=== PATIENT | female | born 1995 | race Caucasian/White ===

== ENCOUNTER 2017-08-27 13:45 | Outpatient (RCR) | payer OTHER, MEDICAID ==
[2017-02-22 06:09] VITALS: BMI 28.4
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
[~2017-08-27 13:45] MED LIST: ACET-1966 PO; AMOX-362 PO; ASPI-1471 PO; Acetamin/Butalbital/Caffeine PO; BUTA1CAP4 PO; CALC-488 PO; CALC-515 PO; CIPR-344 PO; CLIN300C99 PO; ESCI10TA8 PO; ESCI20TA38 PO; ESCI20TA8 PO; FAMO1TAB59 PO; FERR-53 PO; HYDR-389; HYDR-4309 PO; IBUP-56 PO; IBUP800T37 PO; Ibuprofen PO; LOR5/325 PO; LORA-809 PO; NICO-218 TD; NIF10 PO; NIFE10CA38 PO; NITR-105 PO; NORG1TAB97; NORG1TAB97 PO; OMEP40CA48 PO; ONDA4TAB PO; ONDA4TAB97 PO; OXYC-865 PO; PENI-24 PO; PER PO; PREN-123 PO; PREN-127 PO; PROM-110 PO; SUCR1TAB85 PO; SULF-198 PO; [UNRECOGNIZED DRUG - CODE] PO; [UNRECOGNIZED DRUG - OTHER]
== END 2017-08-27 18:00 | disposition home or self-care (01) ==
LOC: PT 13:45
PROVIDERS: ATTEND Orthopaedic Surgery
DX: Z47.89 Encounter for other orthopedic aftercare (principal); S82.871D Displaced pilon fracture of right tibia, subsequent encounter for closed fracture with routine healing; V89.2XXD Person injured in unspecified motor-vehicle accident, traffic, subsequent encounter
CPT/HCPCS: 97161

== ENCOUNTER 2017-10-24 13:00 | Outpatient (RCR) | payer OTHER, MEDICAID ==
[2017-02-22 06:09] VITALS: BMI 28.4
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
== END 2017-10-24 18:00 | disposition home or self-care (01) ==
LOC: PT 13:00
PROVIDERS: ATTEND Orthopaedic Surgery
DX: Z47.89 Encounter for other orthopedic aftercare (principal); S82.871D Displaced pilon fracture of right tibia, subsequent encounter for closed fracture with routine healing; M62.81 Muscle weakness (generalized); M25.571 Pain in right ankle and joints of right foot; V89.2XXD Person injured in unspecified motor-vehicle accident, traffic, subsequent encounter
CPT/HCPCS: 97161

== ENCOUNTER 2017-12-18 18:22 | Emergency (ER) | payer OTHER, MEDICAID ==
[2017-02-22 06:09] VITALS: Wt 77.1 kg
[2017-12-18] MEDS ORDERED: ONDANSETRON 4 MG/2 ML VIAL IVP ONE (18:45)
[2017-12-18] MEDS ORDERED: NS(*) 0.9% 1000 ML BAG 1,000 ML IV ONE (18:45)
--- NOTE | 2017-12-18 18:55 | ER Report ---
History and Physical Time Seen By MD: 18:35 Hx. of Stated Complaint: Pt has cough since this morning and vomiting. No fevers or diarrhea. New control pills 2 months ago. Allergies: Coded Allergies: terbutaline (Verified Adverse Reaction, Intermediate, severe tachacardia, 12/27/16) Home Meds Reported Medications Acetaminophen (TYLENOL) 325 Mg Tablet, 650 MG PO Q4-6H, TAB 05/23/17 Escitalopram Oxalate (LEXAPRO) 20 Mg Tablet, 10 MG PO QDAY, TAB 05/08/17 Discontinued Reported Medications Aspirin (ASPIR 81) 81 Mg Tablet.dr, 81 MG PO QDAY, TAB 05/08/17 Ferrous Sulfate (FERROUS SULFATE) 325 Mg Tablet, 325 MG PO QDAY 05/08/17 Discontinued Scripts Promethazine Hcl (PROMETHAZINE HCL) 25 Mg Tablet, 25 MG PO Q8H Y for NAUSEA/ VOMITING, #20 TAB 0 Refills Prov:SHABNAM LI MD 05/23/17 Hx Smoking: Yes Smoking Status: Former Smoker Exposure to Second Hand Smoke?: Yes Hx Substance Use Disorder: No Hx Alcohol Use: No Constitutional Vital Sign - Last 24 Hours 12/18/17 18:31 Temp 99.7 Pulse 97 Resp 16 B/P (MAP) 145/89 Pulse Ox 94 O2 Delivery Room Air Depart Departure Latest Vital Signs Vital Signs Date Time Temp Pulse Resp B/P (MAP) Pulse Ox O2 Delivery O2 Flow Rate FiO2 12/18/17 18:31 99.7 97 16 145/89 94 Room Air Referrals: ANNA RAO MD (PCP) GOPAL GONZALEZ MD Dec 18, 2017 18:55
[2017-12-18] MEDS ORDERED: IOPAMIDOL 76% 75 ML INFUS BTL 75 ML ONE (19:02)
--- NOTE | 2017-12-18 19:17 | EKG ---
FACILITY: [facility] [place] PATIENT NAME: VIJAY MICHAEL : [id number] MR: [id number] V: [id number] EXAM DATE: ORDERING PHYSICIAN: BLANCA MULLINS TECHNOLOGIST: MICHAELLE Test Reason : CP Blood Pressure : / mmHG Vent. Rate : 088 BPM Atrial Rate : 088 BPM P-R Int : 124 ms QRS Dur : 076 ms QT Int : 350 ms P-R-T Axes : 033 032 022 degrees QTc Int : 423 ms Normal sinus rhythm with sinus arrhythmia Normal ECG When compared with ECG of 08-MAY-2017 20:07, Vent. rate has increased BY 41 BPM Confirmed by DUNG BRASHER ([id number]) on 12/19/2017 11:16:39 AM Referred By: HARPREET Confirmed By:DUNG BRASHER
[2017-12-18 19:36] LABS: PLATELET COUNT, AUTOMATED 280 K/uL (150-450)
--- NOTE | 2017-12-18 19:43 | ER Report ---
History and Physical Time Seen By MD: 18:35 Hx. of Stated Complaint: Pt has cough since this morning and vomiting. No fevers or diarrhea. New control pills 2 months ago. HPI/ROS Chief Complaint: "Cough and Chest Pain" HPI: 22-year-old patient presents to the ED with sudden onset of cough, chest pain, shortness of breath, epigastric, right upper quadrant abdominal pain, nausea and vomiting. The patient states all the symptoms started about 2 hours ago. States, nothing preceded this and "everything came out of nowhere." Reports she now has a headache ever since she started to vomit. No treatments tried. ROS: Constitutional: reports chills and symptoms of fever HEENT: reports headache, denies changes in vision Respiratory: Reports shortness of breath, reports chest pain CV: Reports chest pain : denies changes in urination GI: reports left upper gastric pain, reports epigastric pain, denies constipation or diarrhea Allergies: Coded Allergies: terbutaline (Verified Adverse Reaction, Intermediate, severe tachacardia, 12/27/16) Home Meds Active Scripts Ondansetron (ZOFRAN ODT) 4 Mg Tab.rapdis, 4 MG PO Q6H Y for NAUSEA/VOMITING, # 20 TAB.JOCELINE Prov:BLANCA MULLINS 12/18/17 Reported Medications Acetaminophen (TYLENOL) 325 Mg Tablet, 650 MG PO Q4-6H, TAB 05/23/17 Escitalopram Oxalate (LEXAPRO) 20 Mg Tablet, 10 MG PO QDAY, TAB 05/08/17 Discontinued Reported Medications Aspirin (ASPIR 81) 81 Mg Tablet.dr, 81 MG PO QDAY, TAB 05/08/17 Ferrous Sulfate (FERROUS SULFATE) 325 Mg Tablet, 325 MG PO QDAY 05/08/17 Discontinued Scripts Promethazine Hcl (PROMETHAZINE HCL) 25 Mg Tablet, 25 MG PO Q8H Y for NAUSEA/ VOMITING, #20 TAB 0 Refills Prov:SHABNAM LI MD 05/23/17 Past Medical/Surgical History ankle fracture 1 year ago Reviewed Nurses Notes: Yes Hx Smoking: Yes Smoking Status: Former Smoker Exposure to Second Hand Smoke?: Yes Hx Substance Use Disorder: No Hx Alcohol Use: No Constitutional Vital Sign - Last 24 Hours 12/18/17 12/18/17 12/18/17 12/18/17 18:22 18:31 18:32 18:37 Temp 99.7 Pulse ??? 97 101 Resp 16 B/P (MAP) 145/89 145/89 (107) Pulse Ox 94 95 O2 Delivery Room Air 12/18/17 12/18/17 12/18/17 12/18/17 18:52 19:00 19:07 19:22 Pulse 86 ??? 88 B/P (MAP) 127/68 (87) Pulse Ox 94 94 12/18/17 12/18/17 12/18/17 12/18/17 19:30 19:37 19:52 20:00 Pulse 80 69 B/P (MAP) 118/85 (96) ???/??? (1665) Pulse Ox 93 94 12/18/17 12/18/17 12/18/17 12/18/17 20:07 20:12 20:27 20:30 Pulse ??? 64 67 B/P (MAP) 113/84 (94) Pulse Ox 96 96 12/18/17 12/18/17 12/18/17 20:42 20:57 21:12 Pulse 71 ? Pulse Ox 96 Physical Exam General: 22-year-old female ill appearing HEENT: normocephalic, atraumatic, TMs osiel briggs BL without effusion, no rhinorrhea, no erythema or exudate of the tonsils Respiratory: BL equal respiratory excursion, CTA BL CV: clear S1 S2, no murmurs GI: normoactive BS x 4, left upper gastric pain on palpation, currently vomiting Musculoskeletal: free, full ROM of all extremities, free, full ROM of the neck Differential diagnoses considered: [place], pneumonia, infection, and pancreatitis Medical Decision Making Data Points Result Diagram: 12/18/17191912/18/171919 Laboratory Hematology Test 12/18/17 19:12 12/18/17 19:20 Urine Color Straw Urine Clarity Clear Urine pH 6.0 pH (4.8-9.5) Urine Specific Hemphill 1.013 Urine Protein Negative mg/dL (NEGATIVE) Urine Glucose (UA) Negative mg/dL (NEGATIVE) Urine Ketones Negative mg/dL (NEGATIVE) Urine Blood Negative (NEGATIVE) Urine Nitrite Negative (NEGATIVE) Urine Bilirubin Negative (NEGATIVE) Urine Urobilinogen Negative mg/dL (0.2-1.9) Urine Leukocyte Esterase Negative (NEGATIVE) Urine RBC None /HPF (0-2/HPF) Urine WBC <1 /HPF (0-5/HPF) Urine Squamous Epithelial Cells Many /LPF (</=FEW) Urine Bacteria Negative /HPF (NONE-FEW) Urine Mucus None /HPF (NONE-FEW) Red Blood Count 4.98 M/uL (4.17-5.56) Mean Corpuscular Volume 86.4 fL (80.0-96.0) Mean Corpuscular Hemoglobin 30.4 pg (26.0-33.0) Mean Corpuscular Hemoglobin Concent 35.2 g/dL (32.0-36.0) Red Cell Distribution Width 12.6 % (11.5-14.5) Mean Platelet Volume 8.5 fL (7.2-11.1) Neutrophils (%) (Auto) 59.8 % (39.4-72.5) Lymphocytes (%) (Auto) 31.1 % (17.6-49.6) Monocytes (%) (Auto) 6.6 % (4.1-12.4) Eosinophils (%) (Auto) 1.0 % (0.4-6.7) Basophils (%) (Auto) 1.5 % (0.3-1.4) Nucleated RBC Relative Count (auto) 0.0 /100WBC Neutrophils # (Auto) 5.4 K/uL (2.0-7.4) Lymphocytes # (Auto) 2.8 K/uL (1.3-3.6) Monocytes # (Auto) 0.6 K/uL (0.3-1.0) Eosinophils # (Auto) 0.1 K/uL (0.0-0.5) Basophils # (Auto) 0.1 K/uL (0.0-0.1) Nucleated RBC Absolute Count (auto) 0.00 K/uL Sodium Level 139 mmol/L (137-145) Potassium Level 3.7 mmol/L (3.5-5.0) Chloride Level 101 mmol/L (98-107) Carbon Dioxide Level 24 mmol/L (22-31) Blood Urea Nitrogen 13 mg/dl (7-18) Creatinine 0.70 mg/dl (0.52-1.04) Glomerular Filtration Rate Calc > 60.0 Random Glucose 92 mg/dl (75-110) Calcium Level 9.9 mg/dl (8.4-10.2) Total Bilirubin 0.3 mg/dl (0.2-1.3) Aspartate Amino Transf (AST/SGOT) 63 U/L (0-35) Alanine Aminotransferase (ALT/SGPT) 94 U/L (0-56) Alkaline Phosphatase 60 U/L (0-126) Troponin I < 0.012 ng/ml Total Protein 7.5 g/dl (6.3-8.2) Albumin 4.0 g/dl (3.5-5.0) Amylase Level 143 U/L (0-110) Lipase 86 U/L (23-300) Human Chorionic Gonadotropin, Qual Negative (NEGATIVE) Chemistry Test 12/18/17 19:12 12/18/17 19:20 Urine Color Straw Urine Clarity Clear Urine pH 6.0 pH (4.8-9.5) Urine Specific Hemphill 1.013 Urine Protein Negative mg/dL (NEGATIVE) Urine Glucose (UA) Negative mg/dL (NEGATIVE) Urine Ketones Negative mg/dL (NEGATIVE) Urine Blood Negative (NEGATIVE) Urine Nitrite Negative (NEGATIVE) Urine Bilirubin Negative (NEGATIVE) Urine Urobilinogen Negative mg/dL (0.2-1.9) Urine Leukocyte Esterase Negative (NEGATIVE) Urine RBC None /HPF (0-2/HPF) Urine WBC <1 /HPF (0-5/HPF) Urine Squamous Epithelial Cells Many /LPF (</=FEW) Urine Bacteria Negative /HPF (NONE-FEW) Urine Mucus None /HPF (NONE-FEW) White Blood Count 9.0 k/uL (4.5-11.0) Red Blood Count 4.98 M/uL (4.17-5.56) Hemoglobin 15.1 g/dL (12.0-16.0) Hematocrit 43.0 % (34.0-47.0) Mean Corpuscular Volume 86.4 fL (80.0-96.0) Mean Corpuscular Hemoglobin 30.4 pg (26.0-33.0) Mean Corpuscular Hemoglobin Concent 35.2 g/dL (32.0-36.0) Red Cell Distribution Width 12.6 % (11.5-14.5) Platelet Count 280 K/uL (150-450) Mean Platelet Volume 8.5 fL (7.2-11.1) Neutrophils (%) (Auto) 59.8 % (39.4-72.5) Lymphocytes (%) (Auto) 31.1 % (17.6-49.6) Monocytes (%) (Auto) 6.6 % (4.1-12.4) Eosinophils (%) (Auto) 1.0 % (0.4-6.7) Basophils (%) (Auto) 1.5 % (0.3-1.4) Nucleated RBC Relative Count (auto) 0.0 /100WBC Neutrophils # (Auto) 5.4 K/uL (2.0-7.4) Lymphocytes # (Auto) 2.8 K/uL (1.3-3.6) Monocytes # (Auto) 0.6 K/uL (0.3-1.0) Eosinophils # (Auto) 0.1 K/uL (0.0-0.5) Basophils # (Auto) 0.1 K/uL (0.0-0.1) Nucleated RBC Absolute Count (auto) 0.00 K/uL Glomerular Filtration Rate Calc > 60.0 Calcium Level 9.9 mg/dl (8.4-10.2) Total Bilirubin 0.3 mg/dl (0.2-1.3) Aspartate Amino Transf (AST/SGOT) 63 U/L (0-35) Alanine Aminotransferase (ALT/SGPT) 94 U/L (0-56) Alkaline Phosphatase 60 U/L (0-126) Troponin I < 0.012 ng/ml Total Protein 7.5 g/dl (6.3-8.2) Albumin 4.0 g/dl (3.5-5.0) Amylase Level 143 U/L (0-110) Lipase 86 U/L (23-300) Human Chorionic Gonadotropin, Qual Negative (NEGATIVE) Urinalysis Test 12/18/17 19:12 Urine Color Straw Urine Clarity Clear Urine pH 6.0 pH (4.8-9.5) Urine Specific Hemphill 1.013 Urine Protein Negative mg/dL (NEGATIVE) Urine Glucose (UA) Negative mg/dL (NEGATIVE) Urine Ketones Negative mg/dL (NEGATIVE) Urine Blood Negative (NEGATIVE) Urine Nitrite Negative (NEGATIVE) Urine Bilirubin Negative (NEGATIVE) Urine Urobilinogen Negative mg/dL (0.2-1.9) Urine Leukocyte Esterase Negative (NEGATIVE) Urine RBC None /HPF (0-2/HPF) Urine WBC <1 /HPF (0-5/HPF) Urine Squamous Epithelial Cells Many /LPF (</=FEW) Urine Bacteria Negative /HPF (NONE-FEW) Urine Mucus None /HPF (NONE-FEW) EKG/Imaging EKG Interpretation ECG obtained at 18:59 results reflect normal sinus rhythm with a rate of 88 bpm. Imaging EXAMINATION: CT abdomen and pelvis with contrast COMPARISON: None. HISTORY: Central abdominal pain today. PROCEDURE: Multiplanar contrast enhanced CT of the abdomen and pelvis with 75 mL intravenous Isovue 370. One of the following dose optimization techniques was utilized in the performance of this exam: Automated exposure control; adjustment of the mA and/or kV according to the patient's size; or use of an iterative reconstruction technique. Specific details can be referenced in the facility's radiology CT exam operational policy. FINDINGS: Visualized thorax: Negative. Liver: Severe hepatic steatosis. Gallbladder and biliary system: Negative Spleen: Negative. Pancreas: Negative. Adrenal glands: Negative. Kidneys and bladder: No renal mass or evidence of an obstructive uropathy. Urinary bladder is unremarkable. Vessels: Within normal limits. Bowel and mesentery: Stomach is within normal limits. No small bowel obstruction. Appendix is unremarkable. Small amount of stool within the colon. No bowel or mesenteric inflammation. Pelvic organs: Negative. Lymph nodes: No adenopathy. Free air/free fluid: None. Abdominal wall and osseous structures: Tiny fat-containing umbilical hernia. Osseous structures are unremarkable. IMPRESSION: 1. No findings of acute disease in the abdomen or pelvis. 2. Severe hepatic steatosis. Report Dictated By: Aiden Garduno MD at 12/18/2017 8:21 PM Report E-Signed By: Aiden Garduno MD at 12/18/2017 8:30 PM Examination: CHEST PA AND LAT Comparison: 05/08/2017. History: Cough and central chest pain today. Findings: Cardiac and hilar contour size is within normal limits. No consolidation, nodule, or peribronchial inflammation. No pneumothorax, edema, or effusion. Right clavicle internal fixation. No acute findings. IMPRESSION: No evidence of acute cardiopulmonary disease. Report Dictated By: Aiden Garduno MD at 12/18/2017 8:17 PM Report E-Signed By: Aiden Garduno MD at 12/18/2017 8:20 PM ED Course/Re-evaluation ED Course 22-year-old patient presents to the ED with acute onset of chest pain, shortness of breath, left upper quadrant pain, epigastric pain, nausea, and vomiting. History and physical exam obtained. Differential diagnoses considered and discussed with the patient. ECG normal, abdominal CT and labs consistant with fatty liver disease, chest x-ray was also normal. The suspected cause of the patients symptoms is gastroenteritis. The patient reports improvement of condition after receiving 1000mls of NS and Zofran IV. The patient has been encouraged to push PO fluids and advance diet as tolerated. She has been sent home for self-care and encouraged to follow up with her primary care provider within the next week. Decision to Disposition Date: Dec 18, 2017 Decision to Disposition Time: 20:40 Depart Departure Latest Vital Signs Vital Signs Date Time Temp Pulse Resp B/P (MAP) Pulse Ox O2 Delivery O2 Flow Rate FiO2 12/18/17 21:12 ??? 12/18/17 20:42 96 12/18/17 20:30 113/84 (94) 12/18/17 18:31 99.7 16 Room Air Impression: Primary Impression: Gastroenteritis Condition: Improved Disposition: HOME OR SELF-CARE Referrals: ANNA RAO MD (PCP) New Scripts Ondansetron (ZOFRAN ODT) 4 Mg Tab.rapdis 4 MG PO Q6H Y for NAUSEA/VOMITING, #20 TAB.JOCELINE Prov: BLANCA MULLINS 12/18/17 Patient Instructions: Gastroenteritis (ED) Additional Instructions: Increase fluid intake. Clear liquid diet for the next 24-48 hours. After that you may advance diet as tolerated starting with complex carbohydrates ; rice, bread or pasta. Follow up with your primary care provider in the next week. Return to the ER if condition worsens. You may take over the counter Pepto Bismol as needed for cramping, diarrhea and discomfort. BLANCA MULLINS Dec 18, 2017 19:43
--- NOTE | 2017-12-18 20:25 | RADIOLOGY IMAGING REPORT ---
FACILITY: PATIENT NAME: Leslie Carmichael : 1995 MR: [id number] V: [id number] EXAM DATE: ORDERING PHYSICIAN: BLANCA MULLINS [place]CHNOLOG[place]: [place] [facility] [place] Carm[place] : 1995 Visit/Account:[id number] Date of Sevice: 12/18/2017 Examination: CHEST PA AND LAT Comparison: 05/08/2017. History: Cough and central chest pain today. Findings: Cardiac and hilar contour size is within normal limits. No consolidation, nodule, or peribr onchial inflammation. No pneumothorax, edema, or effusion. Right clavicle internal fixation. No acute findings. IMPRESSION: No evidence of acute cardiopulmonary disease. Report Dictated By: Aiden Garduno MD at 12/18/2017 8:17 PM Report E-Signed By: Aiden Garduno MD at 12/18/2017 8:20 PM WSN:[id number]
[2017-12-18 20:30] VITALS: BP 113/84
--- NOTE | 2017-12-18 20:33 | RADIOLOGY IMAGING REPORT ---
FACILITY: [facility] PATIENT NAME: Leslie Carmichael : 1995 MR: [id number] V: [id number] EXAM DATE: ORDERING PHYSICIAN: BLANCA MULLINS TECHNOLOGIST: Location: [facility] - [place] Patient: Leslie Carmichael : 1995 Visit/Account:[id number] Date of Sevice: 12/18/2017 EXAMINATION: CT abdomen and pelvis with contrast COMPARISON: None. HISTORY: Central abdominal pain today. PROCEDURE: Multiplanar contrast enhanced CT of the abdomen and pelvis with 75 mL intravenous Isovue 3 70. One of the following dose optimization techniques was utilized in the performance of this exam: A utomated exposure control; adjustment of the mA and/or kV according to the patient's size; or use of an iterative reconstruction technique. Specific details can be referenced in the facility's radiolo gy CT exam operational policy. FINDINGS: Visualized thorax: Negative. Liver: Severe hepatic steatosis. Gallbladder and biliary system: Negative Spleen: Negative. Pancreas: Negative. Adrenal glands: Negative. Kidneys and bladder: No renal mass or evidence of an obstructive uropathy. Urinary bladder is unrema rkable. Vessels: Within normal limits. Bowel and mesentery: Stomach is within normal limits. No small bowel obstruction. Appendix is unrem arkable. Small amount of stool within the colon. No bowel or mesenteric inflammation. Pelvic organs: Negative. Lymph nodes: No adenopathy. Free air/free fluid: None. Abdominal wall and osseous structures: Tiny fat-containing umbilical hernia. Osseous structures are u nremarkable. IMPRESSION: 1. No findings of acute disease in the abdomen or pelvis. 2. Severe hepatic steatosis. Report Dictated By: Aiden Gardnuo MD at 12/18/2017 8:21 PM Report E-Signed By: Aidne Garduno MD at 12/18/2017 8:30 PM WSN:[id number]
[2017-12-18] MEDS ORDERED: ONDA4TAB PO (20:43)
== END 2017-12-18 20:50 | disposition home or self-care (01) ==
LOC: ER 18:49
DX: K52.9 Noninfective gastroenteritis and colitis, unspecified (principal); K76.0 Fatty (change of) liver, not elsewhere classified
CPT/HCPCS: 71046; 74177; 81001; 82150; 83690; 84484; 84703; 85025; 93005; 96361; 96374; 99284; J2405; J7030; Q9967; 82040; 82247; 82310; 82374; 82435; 82565; 82947; 84075; 84132; 84155; 84295; 84450; 84460; 84520

== ENCOUNTER 2017-12-26 15:34 | Emergency (ER) | payer OTHER, MEDICAID ==
[2017-02-22 06:09] VITALS: Wt 77.1 kg
--- NOTE | 2017-12-26 15:38 | ER Report ---
History and Physical Time Seen By MD: 15:38 HPI/ROS CHIEF COMPLAINT: Right foot Loy bandage change HISTORY OF PRESENT ILLNESS: Patient is a 22-year-old female here status post foot surgery in [place] earlier this week. Patient reportedly was using an ice pack which broke and saturated the dressing prompting evaluation today. Also complains of mild nausea which she attributes to her medications. Patient is otherwise well-appearing and in no acute distress, denies fevers, chills, chest pain, shortness breath or rashes or worsening pain. REVIEW OF SYSTEMS: Respiratory: No cough, no dyspnea. Cardiovascular: No chest pain, no palpitations. Gastrointestinal: No vomiting, no abdominal pain. Musculoskeletal: No back pain. Extremities: Right foot loy bandage dressing, post op, well healing Allergies: Coded Allergies: terbutaline (Verified Adverse Reaction, Intermediate, severe tachacardia, 12/26/17) Home Meds Reported Medications Escitalopram Oxalate (LEXAPRO) 20 Mg Tablet, 10 MG PO QDAY, TAB 05/08/17 Discontinued Reported Medications Acetaminophen (TYLENOL) 325 Mg Tablet, 650 MG PO Q4-6H, TAB 05/23/17 Discontinued Scripts Ondansetron (ZOFRAN ODT) 4 Mg Tab.rapdis, 4 MG PO Q6H Y for NAUSEA/VOMITING, # 20 TAB.JOCELINE Prov:BLANCA MULLINS SHEEP KILLER 12/18/17 Hx Smoking: Yes Smoking Status: Former Smoker Exposure to Second Hand Smoke?: Yes Hx Substance Use Disorder: No Hx Alcohol Use: No Constitutional Vital Sign - Last 24 Hours 12/26/17 15:39 Temp 97.7 Pulse 75 Resp 18 B/P (MAP) 98/57 Pulse Ox 91 O2 Delivery Room Air Physical Exam General Appearance: The patient is alert, has no immediate need for airway protection and no current signs of toxicity. No acute distress Musculoskeletal: Extremities have full range of motion and are non tender. + right foot post surgery dressing in place Skin: No rashes or lesions. DIFFERENTIAL DIAGNOSIS: After history and physical exam differential diagnosis was considered for dressing change, postop infection, saturated surgical dressing Medical Decision Making ED Course/Re-evaluation ED Course Patient is a 22-year-old female here status post foot surgery earlier this week in [place]. Patient reportedly was icing the extremity and the expected broke and saturated the resting prompting evaluation. Dressing was changed, wound was well-appearing. Patient also complained of mild nausea due to her medications so she was given Zofran ODT. Patient was stable throughout course and was discharged in stable condition. Decision to Disposition Date: Dec 26, 2017 Decision to Disposition Time: 16:00 Depart Departure Latest Vital Signs Vital Signs Date Time Temp Pulse Resp B/P (MAP) Pulse Ox O2 Delivery O2 Flow Rate FiO2 12/26/17 15:39 97.7 75 18 98/57 91 Room Air Impression: Primary Impression: Dressing change Condition: Improved Disposition: HOME OR SELF-CARE Referrals: ANNA RAO MD (PCP) Patient Instructions: Acute Wound Care (ED) Additional Instructions: Please follow-up with your surgeon as scheduled. These return promptly if you develop fevers, worsening pain, drainage from the site. ELVA SHELTON DO Dec 26, 2017 15:38
[2017-12-26 15:39] VITALS: BP 98/57
[2017-12-26] MEDS ORDERED: ONDANSETRON 4 MG ODT TH SL ONE (15:55)
== END 2017-12-26 16:02 | disposition home or self-care (01) ==
LOC: ER 15:35
DX: R11.0 Nausea (principal)
CPT/HCPCS: 99283; S0119

== ENCOUNTER → 2018-02-04 | Outpatient (CLI) | payer BC, MEDICAID ==
[2017-02-22 06:09] VITALS: BMI 28.4
[~2018-02-04] MED LIST changes: +oral birth control
== END ==
LOC: LAB 13:35
PROVIDERS: ATTEND Emergency Medicine
DX: R42 Dizziness and giddiness (principal); R63.5 Abnormal weight gain; R74.8 Abnormal levels of other serum enzymes
CPT/HCPCS: 36415; 82390; 82728; 83036; 83516; 83540; 83550; 84160; 84165; 84443; 86038; 86376; 86706; 86707; 86803; 87340; 87350

== ENCOUNTER → 2018-04-03 | Outpatient (CLI) | payer BC, MEDICAID ==
[2017-02-22 06:09] VITALS: BMI 28.4
== END ==
LOC: RESP 20:36
PROVIDERS: ATTEND Emergency Medicine
DX: G47.30 Sleep apnea, unspecified (principal); G47.61 Periodic limb movement disorder

== ENCOUNTER → 2018-05-14 | Outpatient (CLI) | payer BC, MEDICAID ==
[2017-02-22 06:09] VITALS: BMI 28.4
[~2018-05-14] MED LIST changes: +BUPR-472 PO; +DOXY-179 PO; -HYDR-4309 PO; +HYDR-653 PO; +TRAM-420 PO
--- NOTE | 2018-05-14 16:53 | EKG ---
FAC[facility] PATIENT NAME: VIJAY MICHAEL : [id number] MR: [id number] V: [id number] EXAM DATE: ORDERING PHYSICIAN: FRANCOISE BONILLA TECHNOLOGIST: SANDRA BHATTI Test Reason : TACHYCARDIA Blood Pressure : / mmHG Vent. Rate : 086 BPM Atrial Rate : 086 BPM P-R Int : 128 ms QRS Dur : 078 ms QT Int : 342 ms P-R-T Axes : 052 057 035 degrees QTc Int : 409 ms Normal sinus rhythm Normal ECG No previous ECGs available Referred By: WILVER HIGGINBOTHAM Confirmed By:
== END ==
LOC: RESP 15:54
PROVIDERS: ATTEND Emergency Medicine
DX: Z02.9 Encounter for administrative examinations, unspecified (principal)

== ENCOUNTER → 2018-06-17 | Outpatient (CLI) | payer BC, MEDICAID ==
[2017-02-22 06:09] VITALS: BMI 28.4
== END ==
LOC: LAB 15:37
PROVIDERS: ATTEND Emergency Medicine
DX: G25.81 Restless legs syndrome (principal); R94.5 Abnormal results of liver function studies
CPT/HCPCS: 36415; 82040; 82247; 82248; 82607; 83540; 83550; 84075; 84155; 84450; 84460

== ENCOUNTER 2018-07-15 09:29 | Emergency (ER) | payer BC, MEDICAID ==
[2017-02-22 06:09] VITALS: Wt 77.1 kg
[~2018-07-15 09:29] MED LIST changes: +CYAN500T38 PO
[2018-07-15] MEDS ORDERED: LOOVRAL (09:36)
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
--- NOTE | 2018-07-15 11:57 | RADIOLOGY IMAGING REPORT ---
FACILITY: [facility] PATIENT NAME: Leslie Carmichael : 1995 MR: [id number] V: [id number] EXAM DATE: ORDERING PHYSICIAN: JULIO CÉSAR GONZALEZ TECHNOLOGIST: Location: [facility] - [place] Patient: Leslie Carmichael : 1995 Visit/Account:[id number] Date of Sevice: 07/15/2018 CT of the right ankle Indication: Prior ankle trauma. Recent fall downstairs. Pain. Inconclusive plain films. Comparison: None available Technique: Axial CT images were obtained through the right ankle. Reformatted coronal and sagittal im ages were reviewed. One of the following dose optimization techniques was utilized in the performance of this exam: Autom ated exposure control; adjustment of the mA and/or kV according to the patient's size; or use of an i terative reconstruction technique. Specific details can be referenced in the facility's radiology C T exam operational policy. Findings: No acute fracture is identified about the right ankle. The tibiotalar joint is abnormal. There is severe osteoarthritis identified with areas of bony abutme nt. There is abnormal morphology of the anterior tibial plafond with bone loss. Osteochondral defects are seen to involve the medial talar dome. There is a knee joint effusion identified with at least o ne punctate joint body. There are multiple old screw tracks seen within the distal tibia and fibula a s well as within the calcaneus. Correlate with prior operative fixation. There is an old fracture def ormity which is well-healed involving the distal fibula as well. Given the presence of a joint effusi on and the bone loss and remodeling of the anterior tibial plafond, if there is any clinical concern for infection at the joint, aspiration and fluid analysis is necessary. The subtalar joints appear normal. Midfoot joints are unremarkable. With respect to the soft tissues, there is swelling about the ankle joint most pronounced medially. IMPRESSION: 1. No evidence of acute fracture deformity about the right ankle. 2. CT findings most consistent with severe posttraumatic osteoarthritis at the right tibiotalar joint with osteochondral lesions seen involving the medial talar dome and with fairly extensive bone loss and remodeling of the anterior tibial plafond. 3. Joint effusion at the tibiotalar joint. There is mild surrounding soft tissue swelling. If there i s any clinical concern for infection at the joint, aspiration and fluid analysis is necessary. 4. Multiple old screw tracks involving the distal tibia, fibula and the calcaneus. Correlate with ope rative history. Report Dictated By: Roberto Campa at 07/15/2018 11:32 AM Report E-Signed By: Roberto Campa at 07/15/2018 11:53 AM WSN:[id number]
[2018-07-15 12:00] VITALS: BP 114/74
[2018-07-15] MEDS ORDERED: ACETAMINOPHEN 325 MG TAB PO ONE (12:00)
[2018-07-15] MEDS ORDERED: IBUPROFEN 600 MG TAB PO ONE (12:00)
[2018-07-17] MEDS ORDERED: TRAM-420 PO (09:30)
== END 2018-07-15 12:10 | disposition home or self-care (01) ==
LOC: ER 09:35
DX: M25.571 Pain in right ankle and joints of right foot (principal); S99.911A Unspecified injury of right ankle, initial encounter; S00.11XA Contusion of right eyelid and periocular area, initial encounter; W00.0XXA Fall on same level due to ice and snow, initial encounter
CPT/HCPCS: 99284

== ENCOUNTER 2018-07-21 11:15 | Outpatient (RCR) | payer BC, MEDICAID ==
[2017-02-22 06:09] VITALS: BMI 28.4
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
--- NOTE | 2018-06-11 09:59 | PT PLAN OF CARE ---
Physician: Seven Gillespie MD Patient is being seen: 2x/Week Therapist: Linda Nath, PT, DPT, CLT Medical Diagnosis: Post-traumatic Osteoarthritis Right Ankle and Foot Treatment Diagnosis: Post-traumatic Osteoarthritis Right Ankle and Foot, Plantar Fascitis, Abnormality of Gait Date of Onset: 02/03/18 Date of Initial Evaluation: 04/30/18 Date patient was last seen: 06/10/18 Number of treatments: 10 Number of cancellations/No shows: 2 INTERVENTIONS: Manual Therapy/STM/MET Strengthening/condition Ice/Heat Range of Motion Spinal Stabilization Stretching Iontophoresis Neuromuscular Re-ed Closed Chain Program Electrical Stim Posture/Body mechanics Gait Trg/Balance Trg Biofeedback Home Exercise Program Mech./Manual Traction Therapeutic Activities GOALS: In 3 weeks pt will increase R ankle AROM to 0 degrees in DF and within 5 degrees of the contralateral limb for improved motion with ADL's. MET In 3 weeks pt will be compliant with L heel lift for improved mobility with ambulation and decreased risk of secondary injuries with correction of gait mechanics. MET In 6 weeks pt will ambulate with normal gait mechanics for improved function with ADL's. In Progress In 6 weeks pt will increase strength of the R LE to equal to that of the contralateral limb for improved function with ADL's. In Progress PATIENT'S GOAL: Improve function with ADL's and increase mobility. Status of Patient's Goals: 2/4 MET, 2/4 In Progress Patient Compliance: Good Prognosis: Good Reasons for continuing therapy: Leslie shows improved ankle mobility as well as decreased pain with continued treatment. Plantar fascia continues to improve with pt no longer having a large nodule of scare tissue along the flexor surface and improved tendon and fascia mobility. DF ROM remains restricted with significant time spent in PF with WB reduced brace. Modifications to brace may be indicated to prevent contracture development. Pt shows improved neuromuscular activation with decreased muscular spasms with strengthening of the LE as well, though with lingering deficits present. Gait shows improved mechanics with added heel lift on contralateral limb and cuing on decreased hip external rotation, however lateral trunk sway remains as well as knee hyperextension. Further PT to continue with gains in strength and functional mobility for performance of ADL's. Posture: Pt presents with moderate R hip and LE external rotation with knee hyperextension. R foot posture significant for mild pes cavus with foot inversion and plantar flexion. ROM: Ankle ROM (R, L): DF: 0, 4, PF: 50, 68, Inv: 42, 44, Ever: 20, 43 Strength: Ankle MMT (R, L): DF: 4+/5, 5/5, PF: 2+/5 with pain, 5/5, Inv: 4-/5, 4+/5, Ever: 3+/5, 4+/5. Palpation: Incisions are well healed on medial and lateral ankle with good mobility and minimal restrictions. Pt is tender to palpation on the plantar aspect of the foot from calcaneus to MTP joints with moderate restrictions along the plantar fascia. If you have any questions, please feel free to contact me at [phone]. Thank you, Linda Nath, PT, DPT, CLT TORREYD
[~2018-07-21 11:15] MED LIST changes: +LOOVRAL
== END 2018-07-29 ==
LOC: PT 11:15
PROVIDERS: ATTEND Orthopaedic Surgery Foot and Ankle Surgery
DX: Z47.89 Encounter for other orthopedic aftercare (principal); M19.171 Post-traumatic osteoarthritis, right ankle and foot; R26.89 Other abnormalities of gait and mobility; M72.2 Plantar fascial fibromatosis
CPT/HCPCS: 97162

== ENCOUNTER → 2018-09-15 | Outpatient (CLI) | payer BC, MEDICAID ==
[2017-02-22 06:09] VITALS: BMI 28.4
[~2018-09-15] MED LIST changes: +BUPR-474 PO; +LOOVRAL PO
[2018-09-15 15:10] LABS: PLATELET COUNT, AUTOMATED 360 K/uL (150-450)
== END ==
LOC: LAB 14:35
PROVIDERS: ATTEND Emergency Medicine
DX: N39.0 Urinary tract infection, site not specified (principal); R19.7 Diarrhea, unspecified
CPT/HCPCS: 36415; 82040; 82247; 82310; 82374; 82435; 82565; 82947; 84075; 84132; 84155; 84295; 84450; 84460; 84520; 85007; 85027

== ENCOUNTER → 2018-09-16 | Outpatient (CLI) | payer BC, MEDICAID ==
[2017-02-22 06:09] VITALS: BMI 28.4
[2018-09-16 11:36] LABS: PLATELET COUNT, AUTOMATED 339 K/uL (150-450)
== END ==
LOC: LAB 11:13
PROVIDERS: ATTEND Emergency Medicine
DX: R19.7 Diarrhea, unspecified (principal); E03.9 Hypothyroidism, unspecified; N39.0 Urinary tract infection, site not specified; R94.5 Abnormal results of liver function studies
CPT/HCPCS: 36415; 80074; 82274; 83516; 84439; 84443; 84481; 85025; 86376; 86800; 87045; 87177

== ENCOUNTER 2018-09-30 15:30 | Outpatient (RCR) | payer BC, MEDICAID ==
[2017-02-22 06:09] VITALS: BMI 28.4
--- NOTE | 2018-07-30 17:53 | PT PLAN OF CARE ---
Physician: Seven Gillespie MD Patient is being seen: 2-3x/Week Therapist: Linda Nath, PT, DPT, CLT Medical Diagnosis: Post-traumatic Osteoarthritis Right Ankle and Foot Treatment Diagnosis: Post-traumatic Osteoarthritis Right Ankle and Foot, Plantar Fascitis, Abnormality of Gait Date of Onset: 02/03/18 Date of Initial Evaluation: 04/30/18 Date patient was last seen: 07/21/18 Number of treatments: 20 Number of cancellations/No shows: 2 INTERVENTIONS: Manual Therapy/STM/MET Strengthening/condition Ice/Heat Range of Motion Spinal Stabilization Stretching Iontophoresis Neuromuscular Re-ed Closed Chain Program Electrical Stim Posture/Body mechanics Gait Trg/Balance Trg Biofeedback Home Exercise Program Mech./Manual Traction Therapeutic Activities GOALS: In 3 weeks pt will increase R ankle AROM to 0 degrees in DF and within 5 degrees of the contralateral limb for improved motion with ADL's. MET In 3 weeks pt will be compliant with L heel lift for improved mobility with ambulation and decreased risk of secondary injuries with correction of gait mechanics. MET In 6 weeks pt will ambulate with normal gait mechanics for improved function with ADL's. In Progress In 6 weeks pt will increase strength of the R LE to equal to that of the contralateral limb for improved function with ADL's. In Progress PATIENT'S GOAL: Improve function with ADL's and increase mobility. Status of Patient's Goals: 2/4 MET, 2/4 In Progress Patient Compliance: Good Prognosis: Good Reasons for continuing therapy: Secondary to recent fall progress towards improved ROM was temporarily diminished. However, with reductions in swelling ROM is again improving. Gait shows significant improvements with minimal LE ER at this time and only slight hyperextension in stance phase. Plantar fascia continues to improve with slight increase in scar tissue following recent fall but again reducing quickly with decreased sensitivity. DF ROM remains restricted with significant time spent in PF with WB reduced brace modifications made in prior sessions were not well tolerated by patient. Neuromuscular activation continues to improve with decreased muscular spasms. Further PT to continue with gains in strength and functional mobility for performance of ADL's. Posture: Pt presents with minimal R hip and LE external rotation with knee hyperextension. R foot posture significant for mild pes cavus with foot inversion and plantar flexion. ROM: Ankle ROM (R, L): DF: 0, 4, PF: 50, 68, Inv: 42, 44, Ever: 20, 43 Strength: Ankle MMT (R, L): DF: 4+/5, 5/5, PF: 3/5, 5/5, Inv: 4-/5, 4+/5, Ever: 3+/5, 4+/5. Palpation: Incisions are well healed on medial and lateral ankle with good mobility and minimal restrictions. Pt is tender to palpation on the plantar aspect of the foot from calcaneus to MTP joints with moderate restrictions along the plantar fascia. If you have any questions, please feel free to contact me at [phone]. Thank you, Linda Nath, PT, DPT, CLT MTDD
--- NOTE | 2018-09-08 16:03 | PT PLAN OF CARE ---
Physician: Seven Gillespie MD Patient is being seen: 2x/Week Therapist: Linda Nath, PT, DPT, CLT Medical Diagnosis: Post-traumatic Osteoarthritis Right Ankle and Foot, Cervicalgia, Thoracic Pain with spasms Treatment Diagnosis: Post-traumatic Osteoarthritis Right Ankle and Foot, Plantar Fascitis, Abnormality of Gait, Cervical Dysfunction, Thoracic Pain Date of Onset: 02/03/18 Date of Initial Evaluation: 04/30/18 Date patient was last seen: 09/08/18 Number of treatments: 29 Number of cancellations/No shows: 5 INTERVENTIONS: Manual Therapy/STM/MET Strengthening/condition Ice/Heat Range of Motion Spinal Stabilization Stretching Iontophoresis Neuromuscular Re-ed Closed Chain Program Electrical Stim Posture/Body mechanics Gait Trg/Balance Trg Biofeedback Home Exercise Program Mech./Manual Traction Therapeutic Activities GOALS: In 3 weeks pt will increase R ankle AROM to 0 degrees in DF and within 5 degrees of the contralateral limb for improved motion with ADL's. MET In 3 weeks pt will be compliant with L heel lift for improved mobility with ambulation and decreased risk of secondary injuries with correction of gait mechanics. MET In 6 weeks pt will ambulate with normal gait mechanics for improved function with ADL's. In Progress In 6 weeks pt will increase strength of the R LE to equal to that of the contralateral limb for improved function with ADL's. In Progress PATIENT'S GOAL: Improve function with ADL's and increase mobility. Status of Patient's Goals: 2/4 MET, 2/4 In Progress Patient Compliance: Good Prognosis: Good Reasons for continuing therapy: Following assessment of her thoracic and cervical spine, Leslie shows signs and symptoms consistent with thoracic posterior derangement and possible cervical instability. Pt started on exercises to improve deep cervical muscular stability as well as will start including postural strengthening to decrease thoracic dysfunction. Ankle mobility shows improved motion throughout with continued progress towards LE strengthening without spasms. Further PT to include addressing these impairments as above listed as well as continuing with LE strengthening and gait mechanics for treatment of R ankle. Posture: Pt presents with minimal R hip and LE external rotation with knee hyperextension. R foot posture significant for mild pes cavus with foot inversion and plantar flexion. ROM: Ankle ROM (R, L): DF: 0, 4, PF: 50, 68, Inv: 42, 44, Ever: 20, 43 -Cervical spine ROM: minimal pain with L SB and L rotation, No direction of preference noted with repeated exercise. Full ROM in all directions -Thoracic spine ROM: pain with increased flexion, decreased pain with repeated extensions. Strength: Ankle MMT (R, L): DF: 4+/5, 5/5, PF: 3/5, 5/5, Inv: 4-/5, 4+/5, Ever: 3+/5, 4+/5 Deep cervical flexors 7 second hold max with pain. Palpation: Incisions are well healed on medial and lateral ankle with good mobility and minimal restrictions. Pt is tender to palpation on the plantar aspect of the foot from calcaneus to MTP joints with moderate restrictions along the plantar fascia. If you have any questions, please feel free to contact me at [phone]. Thank you, Linda Nath, PT, DPT, CLT TRISTAN
[2018-10-14] MEDS ORDERED: BUPR-474 PO (13:10)
== END 2018-09-30 18:00 | disposition home or self-care (01) ==
LOC: PT 15:30
PROVIDERS: ATTEND Orthopaedic Surgery Foot and Ankle Surgery
DX: M19.171 Post-traumatic osteoarthritis, right ankle and foot (principal); R26.89 Other abnormalities of gait and mobility; M72.2 Plantar fascial fibromatosis